=== PATIENT | female | born 1980 | race Caucasian/White ===

== ENCOUNTER 2020-12-13 10:44 | Outpatient (RCR) | payer BC, SELFPAY ==
[2020-12-13 11:08] VITALS: BMI 34.6
[2020-12-13 11:09] VITALS: BMI 34.6
== END 2021-02-28 15:03 | disposition home or self-care (01) ==
LOC: ANHDMC 10:44
PROVIDERS: Referring Provider Obstetrics & Gynecology; Visit Provider Obstetrics & Gynecology
DX: R73.09 Other abnormal glucose (principal); Z71.3 Dietary counseling and surveillance
CPT/HCPCS: 97802

== ENCOUNTER 2021-06-01 10:14 | Outpatient (RCR) | payer BC, SELFPAY ==
[2021-05-22 11:13] VITALS: BP 118/72; PULSE 101
[2021-05-25 12:59] VITALS: BP 115/73; PULSE 97
[2021-05-29 13:06] VITALS: BP 113/71; PULSE 101
--- NOTE | ~2021-06-01 | US_ITS ---
US OB BPP wo non-stress DATE: 05/29/2021 11:33 INDICATION: Advanced maternal age TECHNIQUE: Real-time imaging and Doppler analysis COMPARISON: 05/22/2021 obstetrical ultrasound with biophysical profile FINDINGS: Live cary intrauterine gestation, fetus in vertex presentation, longitudinal lie, with heart rate of 157 bpm. Anterior placenta. BIOPHYSICAL PROFILE reported by arcade technician: breathin out of 2 movement: 2 out of 2 tone: 2 out of 2 Amniotic fluid pocket: 2 out of 2 Total score: 8 out of 8 IMPRESSION: Normal biophysical profile score of 8 out of 8 Reviewed, dictated and finalized at Location A. Reviewed, dictated and finalized at location B.
--- NOTE | ~2021-06-01 | US_ITS ---
EXAMINATION: US OB BPP wo non-stress DATE: 05/22/2021 11:47 INDICATION: Advanced maternal age during third trimester TECHNIQUE: Real-time pelvic ultrasound was performed. The interpreting radiologist was not present fo r the study. COMPARISON: None. FINDINGS: There is a single living fetus in vertex presentation. The placenta is anterior. heart rate is 167 beats per minute (bpm). Biophysical profile performed by the technologist: breathing (30 sec sustained breathing in 30 minutes): 2 out of 2 movement (3 gross body movements in 30 minutes): 2 out of 2 tone (one episode of latixul-ymmhunzpv-vhjiqjz limb movement): 2 out of 2 Amniotic fluid pocket (2 cm): 2 out of 2 Total score: 8 out of 8 IMPRESSION: 1. Single living fetus in vertex presentation with heart rate of 167 bpm. 2. Biophysical profile 8 out of 8. Reviewed, dictated and finalized at location B.
[2021-06-01 10:48] VITALS: BP 123/77; PULSE 98
== END 2021-07-02 09:26 | disposition home or self-care (01) ==
LOC: ANHOBOP 10:14
PROVIDERS: Visit Provider Obstetrics & Gynecology
DX: O09.513 Supervision of elderly primigravida, third trimester (principal); Z3A.32 32 weeks gestation of pregnancy; Z3A.33 33 weeks gestation of pregnancy; Z3A.34 34 weeks gestation of pregnancy
CPT/HCPCS: 59025; 76819

== ENCOUNTER 2021-06-01 23:07 | Observation (INO) | payer BC, SELFPAY ==
[2021-06-01] VITALS (11 sets, daily range): BP systolic 129–130; BP diastolic 72–90; PULSE 83–95; RESP 18; TEMP 36.3; O2SAT 97–99; BMI 33.6
[2021-06-01] MEDS: TERBUTALINE SULFATE 1 MG/ML VIAL 0.25 MG SUB-Q (23:29)
[2021-06-01] MEDS: LACTATED RINGERS 1,000 ML 999 ML (23:31)
--- NOTE | 2021-06-01 23:56 | OBADM ---
This patient, Marisol Romano, admitted to the OB room OB Post 117 for observation. Patient/family oriented to hospital policies and general routines including ID bracelet, bed and alarms, visiting hours, pain management, procedures, bathroom and other care routines, personal items, smoking policy, room service/diet, and visiting hours. Patient/Family are encouraged to report perceived risks to care and to ask questions if they do not understand what they are told or what they should do.
[2021-06-02] VITALS (36 sets, daily range): BP systolic 117–149; BP diastolic 66–76; PULSE 85–112; RESP 20; TEMP 37.1; O2SAT 97–100
[2021-06-02] LABS: Add Urine Microscopic? NO; Appearance Urine Clear (Clear); Bilirubin Urine Negative (Negative); Blood Urine Negative (Negative); Color Urine Straw (Yellow); Glucose Urine UA Negative (Negative); Ketones Urine Negative (Negative); Leukocyte Esterase Ur Negative LEU/UL (Negative); Nitrate Urine Negative (Negative); Protein Urine Negative (Negative); Specific Grav Ur 1.008 (1.001-1.035); Urobilinogen Urine Negative mg/dL (<2.0)
[2021-06-02] MEDS: TERBUTALINE SULFATE 1 MG/ML VIAL 0.25 MG SUB-Q (00:02)
[2021-06-02] MEDS: NIFEdipine 10 MG CAPSULE PO (01:25)
--- NOTE | 2021-06-06 06:45 | P.PNOB_ITS ---
OB - Triage/Final Diagnosis Visit Information Reason for evaluation: threatened labor Comments/Additional reasons for admission: I have assessed the risk for this patient, Marisol Romano, and determined that she would benefit from observation care. Evaluation Laboratory results: Laboratory Tests 06/01/21 23:42 Urine Color Straw Urine Appearance Clear Urine pH 7.0 Ur Specific [place] 1.008 Urine Protein Negative Urine Glucose (UA) Negative Urine Ketones Negative Ur Blood (Man) Negative Urine Nitrate Negative Urine Bilirubin Negative Urine Urobilinogen Negative Leukocyte Esterase Rfl Negative
== END 2021-06-02 02:39 | disposition home or self-care (01) ==
PROVIDERS: Admitting Provider Obstetrics & Gynecology; Visit Provider Obstetrics & Gynecology
DX: O47.03 False labor before 37 completed weeks of gestation, third trimester (principal); Z3A.34 34 weeks gestation of pregnancy
CPT/HCPCS: 81003; 96372; A9270; G0378; G0379; J3105; J7120

== ENCOUNTER 2021-06-04 04:35 | Inpatient (IN) | payer BC, SELFPAY ==
[2021-06-04] VITALS (65 sets, daily range): BP systolic 96–142; BP diastolic 49–93; PULSE 64–106; RESP 16–20; TEMP 36.3–37.2; O2SAT 99–100; BMI 33.5
[2021-06-04 05:16] LABS: Basophils Absolute Auto 0.1 K/mm3 (0.0-0.1); Basophils Percent Auto 0.3 % (0.2-1.2); Eosinophils Absolute Auto 0.2 K/mm3 (0-0.3); Eosinophils Percent Auto 1.1 % (0-4.4); Hematocrit 36.6 % (37.0-47.0); Hemoglobin 12.4 g/dL (12.0-15.0); Immature Granulocyte Absolute 0.14 K/mm3 (0.00-0.031); Immature Granulocyte Percent A 0.7 % (0-0.5); Lymphocytes Absolute Auto 3.42 K/mm3 (0.9-3.2); Lymphocytes Percent Auto 17.7 % (18.3-44.2); Mean Corpuscular HGB Conc 33.9 g/dl (32-36); Mean Corpuscular Hemoglobin 31.2 pg (26-34); Mean Corpuscular Volume 92.2 fl (80-100); Mean Platelet Volume 10.5 fl (7.4-10.4); Monocytes Percent Auto 5.2 % (2.6-8.5); Neutrophils Absolute Auto 14.5 K/mm3 (1.3-6.7); Platelet Count Result 350 k/mm3 (150-375); Red Blood Count 3.97 M/mm3 (4.2-5.4); Red Cell Distribution Width 13.9 % (11.5-14.5); White Blood Count 19.3 K/mm3 (4.5-10.0)
[2021-06-04] MEDS: LACTATED RINGERS 1,000 ML 999 ML IV CONT (05:20)
[2021-06-04] MEDS: MAGNESIUM SULF 6 GM/WATER150ML 6 GM/150 ML BAG IVPB (05:25)
[2021-06-04 05:31] LABS: Alanine Aminotransferase 15 U/L (4-35); Alkaline Phosphatase 107 U/L (38-126); Anion Gap 11 mmol/L (8-16); Aspartate Amino Transferase 19 U/L (14-36); Bilirubin,Total 0.3 mg/dL (0.2-1.3); Blood Urea Nitrogen 6 mg/dL (7-17); Calcium 9.9 mg/dL (8.4-10.2); Carbon Dioxide 18 mmol/L (22-30); Chloride 106 mmol/L (98-107); Estimated Glomerular Filt Rate > 60; Glucose 118 mg/dL (65-110); Potassium 3.9 mmol/L (3.4-5.0); Sodium 135 mmol/L (137-145)
--- NOTE | 2021-06-04 06:45 | PM.IMHP ---
H&P: HPI History of Present Illness Date/Time: 06/04/21 06:45 41-year-old 3 para 2001 female presents at 35 weeks with uterine contractions through the night and so small amount of vaginal bleeding. The was initiated on magnesium sulfate and though contractions slowed she did of spontaneous rupture membranes with clear fluid noted. we will therefore be proceeding without repeat delivery. We have discussed also tubal ligation which she does strongly desired to proceed with after being counseled regarding permanence failure rate increase risk of ectopic and regret. Chief Complaint: contractions Review of Systems Review of Systems: All systems reviewed & are unremarkable except as noted in HPI and below [facility] Social History Social History Spiritual care concerns: No Meds Home Medications and Allergies Allergies Allergy/AdvReac Type Severity Reaction Status Date / Time amoxicillin Allergy Unknown Hives Verified 06/04/21 05:50 Penicillins Allergy Hives Verified 06/01/21 23:51 Vital Signs Vital Signs - 24 hr 06/04/21 05:16 06/04/21 05:25 06/04/21 05:31 Temperature 36.3 C L Pulse Rate 94 104 H 99 Respiratory Rate 16 Blood Pressure 128/89 126/92 H 123/88 06/04/21 05:46 06/04/21 06:01 06/04/21 06:16 Temperature Pulse Rate 106 H 97 98 Respiratory Rate Blood Pressure 126/92 H 120/78 142/89 H 06/04/21 06:31 Temperature Pulse Rate 91 Respiratory Rate Blood Pressure 127/79 Exam Const: General: cooperative and healthy appearing Resp: Effort & Inspection: normal respiratory effort Auscultation: clear to auscultation bilaterally Cardio: Rate: regular rate Rhythm: regular rhythm GI: Auscultation: normal bowel sounds : Bimanual exam- vagina & uterus: enlarged ( Fundal height 36cm heart tones 130-140) H&P: Results Labs Labs: Short CBC 06/04/21 Range/Units 05:10 WBC 19.3 H (4.5-10.0) K/mm3 Hgb 12.4 (12.0-15.0) g/dL Hct 36.6 L (37.0-47.0) % Plt Count 350 (150-375) k/mm3 [facility] 06/04/21 05:10 Sodium 135 L Potassium 3.9 Chloride 106 Carbon Dioxide 18 L BUN 6 L Creatinine 0.50 L Glucose 118 H Calcium 9.9 Liver Function 06/04/21 Range/Units 05:10 Total Bilirubin 0.3 (0.2-1.3) mg/dL AST 19 (14-36) U/L ALT 15 (4-35) U/L Alkaline Phosphatase 107 (38-126) U/L Albumin 4.0 (3.5-5.1) g/dL Assessment and Plan Assessment and plan (1) 35 weeks gestation of : Code(s): Z3A.35 - 35 weeks gestation of Status: Acute (2) labor with term delivery, antepartum: Code(s): O60.20X0 - Term delivery with labor, unspecified trimester, not applicable or unspecified Status: Acute (3) premature rupture of membranes: Code(s): O42.919 - premature rupture of membranes, unspecified as to length of time between rupture and onset of labor, unspecified trimester Status: Acute (4) Encounter for female sterilization procedure: Code(s): Z30.2 - Encounter for sterilization Status: Acute Additional Plan 1. Repeat low transverse section 2. Bilateral tubal ligation
--- NOTE | 2021-06-04 06:48 | WPDHPUPDATE1 ---
History and Physical Update Update Date/Time: 06/04/21 06:48 History and Physical has been reviewed, including an updated exam of the patient. There are NO changes in the patient's condition. Risks, benefits, and alternatives have been discussed and questions answered. Patient agrees to proceed with procedure.
[2021-06-04] MEDS: ceFAZolin 2 GM/D5W 50 ML 2 GM/50 ML BAG IVPB (06:49)
--- NOTE | 2021-06-04 06:51 | WPDANESEPP ---
Anes - Eval Pre Procedure Procedure: Operation Date: 06/04/21 06:30 Proposed Procedures p Section - Adrián Ho MD Date/Time: 06/04/21 06:51 Pre Op Diagnosis: Contractions Patient Data Age: 41 Gender: F Height: Weight: Last Vital Signs Temp 36.3 C L 06/04/21 05:25 Pulse 97 06/04/21 06:46 Resp 16 06/04/21 05:25 BP 137/93 H 06/04/21 06:46 Allergies Allergy/AdvReac Type Severity Reaction Status Date / Time amoxicillin Allergy Unknown Hives Verified 06/04/21 05:50 Penicillins Allergy Hives Verified 06/01/21 23:51 Laboratory Tests 06/04/21 06/04/21 06/04/21 05:10 05:10 06:21 WBC 19.3 K/mm3 H K/mm3 (4.5-10.0) RBC 3.97 M/mm3 L M/mm3 (4.2-5.4) Hgb 12.4 g/dL g/dL (12.0-15.0) Hct 36.6 % L % (37.0-47.0) MCV 92.2 fl fl (80-100) MCH 31.2 pg pg (26-34) MCHC 33.9 g/dl g/dl (32-36) RDW 13.9 % % (11.5-14.5) Plt Count 350 k/mm3 k/mm3 (150-375) MPV 10.5 fl H fl (7.4-10.4) Immature Gran % (Auto) 0.7 % H % (0-0.5) Neut % (Auto) 75.0 % H % (45.5-73.1) Lymph % (Auto) 17.7 % L % (18.3-44.2) [place] % (Auto) 5.2 % % (2.6-8.5) Eos % (Auto) 1.1 % % (0-4.4) Baso % (Auto) 0.3 % % (0.2-1.2) Lymph # (Auto) 3.42 K/mm3 H K/mm3 (0.9-3.2) [place] # (Auto) 1.0 K/mm3 H K/mm3 (0.1-0.6) Eos # (Auto) 0.2 K/mm3 K/mm3 (0-0.3) Baso # (Auto) 0.1 K/mm3 K/mm3 (0.0-0.1) Abs Immat Gran (auto) 0.14 K/mm3 H K/mm3 (0.00-0.031) Absolute Neuts (auto) 14.5 K/mm3 H K/mm3 (1.3-6.7) Absolute Nucleated RBC 0.0 K/mm3 K/mm3 (0.0-0.012) Nucleated RBC % 0.0 % % (0.0-0.2) Sodium 135 mmol/L L mmol/L (137-145) Potassium 3.9 mmol/L mmol/L (3.4-5.0) Chloride 106 mmol/L mmol/L (98-107) Carbon Dioxide 18 mmol/L L mmol/L (22-30) Anion Gap 11 mmol/L mmol/L (8-16) BUN 6 mg/dL L mg/dL (7-17) Creatinine 0.50 mg/dL L mg/dL (0.7-1.0) Estim Creat Clear Calc Not Reportable Estimated GFR > 60 (59 - ) Glucose 118 mg/dL H mg/dL (65-110) Calcium 9.9 mg/dL mg/dL (8.4-10.2) Total Bilirubin 0.3 mg/dL mg/dL (0.2-1.3) AST 19 U/L U/L (14-36) ALT 15 U/L U/L (4-35) Alkaline Phosphatase 107 U/L U/L (38-126) Total Protein 7.0 g/dL g/dL (6.3-8.2) Albumin 4.0 g/dL g/dL (3.5-5.1) RPR Pending Patient hx anesthesia problems: none Family hx anesthesia problems: none Results Review: All pre-operative results and documents have been reviewed as part of the pre-operative evaluation. [facility] Social History Social History Spiritual care concerns: No Exam Day of Procedure 06/04/21 06:51 Patient weight: normal Heart: regular rate and rhythm Lungs: normal air movement Airway: Mallampati scale class 1 Neurological: alert and oriented
--- NOTE | 2021-06-04 07:47 | P.PCNOB_ITS ---
OB - Delivery Note Procedure Procedure: Procedures Operation Date: 06/04/21 06:30 <No data on this case meets the specified criteria> events: Labor < 37 Weeks and Premature Rupture of Membrane Route of delivery: (With bilateral tubal ligation) Specimen: Yes (1. Bilateral fallopian tubes 2. Placenta) Quantitative Blood Loss (ml): 650 Anesthesia type: Spinal Disposition: floor Narrative: Patient and draped in usual manner for procedure. Pfannenstiel incision was made which was carried down to the fascia without difficulty. Fascia was then extended bilaterally the length of the skin incision with adhesions noted the anterior uterine wall to the fascia. These were taken down sharply and bluntly. Once the peritoneum was entered the bladder flap was developed in uterus was scored with clear fluid noted. The uterine incision was extended bilaterally without difficulty and vertex was delivered followed by the rest of baby. Cord clamped and cut passed off to the waiting production troubleshooter. Placenta was removed manually and the uterine cavity was cleared of membranes and clots in the uterine incision was approximated using 0 Monocryl in a running interlocking manner with good Amoxil approximation and hemostasis noted. Bilaterally the tubes were grasped and 0 plain suture was used to perform the tubal ligation. There is a small amount of oozing on the anterior portion of the uterus and this rendered hemostatic with a [id number] 0 Monocryl suture. Uterus was turned the abdomen tubal stumps were noted be hemostatic and intact. And gutters were cleared of serosanguineous fluid and clots. All subfascial tissue was noted hemostatic and the fascia was approximated using 0 Vicryl from left angle to the midline and the right angle to midline in a running manner. Subcutaneous tissue was approximated using 0 plain suture and s taples were used to approximate skin edges. Baby Weeks of gestation at delivery: 35 Infant gender: Female Weight (pounds): 5 Weight (ounces): 12 score one minute: 8 score five minutes: 9
--- NOTE | 2021-06-04 08:17 | LDADM ---
This patient, Marisol Romano, was admitted to Labor/Delivery/Recovery 119 on 06/04/21 at 06:10. Plans for labor, pain management and were discussed with patient. Patient/family oriented to hospital policies and general routines including ID bracelet, bed and alarms, visiting hours, pain management, procedures, bathroom and other care routines, personal items, smoking policy, room service/diet and guest tray routines, infant security routines, and visiting hours. Patient/Family are encouraged to report perceived risks to care and to ask questions if they do not understand what they are told or what they should do. See OBIX for further documentation.
[2021-06-04] MEDS: OXYTOCIN 30 UNITS/NS 500 ML 30 UNITS/500 ML BAG 125 UNITS IV CONT (09:49)
--- NOTE | 2021-06-04 10:26 | PC.NURSE ---
Patient transferred to post room #278 per stretcher from labor and delivery. Support person present. Oriented to unit, room, information board, rooming in, admission packet and security measures. Patient verbalizes understanding.
[2021-06-04 10:28] LABS: Rapid Plasma Reagin Non-Reactive (NonReactive)
[2021-06-04] MEDS: DEXTROSE 5%/0.45% SOD CHL 1,000 ML 125 ML IV CONT (14:40)
[2021-06-04] MEDS: IBUPROFEN 600 MG TABLET PO (19:08)
[2021-06-05 01:00] VITALS: BP 116/62; PULSE 85; RESP 18; TEMP 36.7; O2SAT 98
[2021-06-05 05:15] VITALS: BP 100/61; PULSE 86; RESP 16; TEMP 36.6; O2SAT 99
[2021-06-05] MEDS: IBUPROFEN 600 MG TABLET PO ×3 (05:34→17:32)
[2021-06-05 05:35] LABS: Basophils Percent Auto 0.2 % (0.2-1.2); Eosinophils Absolute Auto 0.2 K/mm3 (0-0.3); Hematocrit 30.2 % (37.0-47.0); Immature Granulocyte Absolute 0.11 K/mm3 (0.00-0.031); Immature Granulocyte Percent A 0.6 % (0-0.5); Lymphocytes Absolute Auto 2.29 K/mm3 (0.9-3.2); Lymphocytes Percent Auto 13.4 % (18.3-44.2); Mean Corpuscular HGB Conc 33.1 g/dl (32-36); Mean Corpuscular Hemoglobin 30.9 pg (26-34); Mean Corpuscular Volume 93.2 fl (80-100); Mean Platelet Volume 10.6 fl (7.4-10.4); Monocytes Absolute Auto 1.2 K/mm3 (0.1-0.6); Monocytes Percent Auto 6.9 % (2.6-8.5); Neutrophils Absolute Auto 13.4 K/mm3 (1.3-6.7); Neutrophils Percent Auto 77.9 % (45.5-73.1); Platelet Count Result 309 k/mm3 (150-375); Red Blood Count 3.24 M/mm3 (4.2-5.4); Red Cell Distribution Width 13.9 % (11.5-14.5); White Blood Count 17.1 K/mm3 (4.5-10.0)
[2021-06-05 07:55] VITALS: BP 109/65; PULSE 79; RESP 16; TEMP 37; O2SAT 99
[2021-06-05] MEDS: MULTIVIT/MIN/PREN/FOL AC/IRON TABLET 1 TAB PO (09:14)
[2021-06-05] MEDS: DOCUSATE SODIUM 100 MG CAPSULE PO ×2 (09:14→17:32)
--- NOTE | 2021-06-05 09:42 | WPDANLDPN2 ---
Anes-Prog Note L&D Date/Time: 06/05/21 09:42 Comfortable throughout: section Neuraxial method: spinal Epidural/Spinal procedure site: clean & non-tender Neuro status: Neuro function grossly intact. Cardiovascular status: normal Respiratory status: normal Airway patency: baseline Mental status: baseline Post-Op hydration status: normal Vital Signs: Last Vital Signs Temp 37.0 C 06/05/21 07:55 Pulse 79 06/05/21 07:55 Resp 16 06/05/21 07:55 BP 109/65 06/05/21 07:55 Pulse Ox 99 06/05/21 07:55 Pain score (VAS): 08/27 I/O: Intake & Output 06/04/21 06/05/21 06/05/21 23:59 07:59 15:59 Intake Total 780 400 Output Total 1275 1500 Balance -495 -1100 Post-procedural complaints: none Patient feedback: Patient satisfied with anesthetic care.
--- NOTE | 2021-06-05 09:42 | WPDANLDNPN2 ---
Anes-Prog Note L&D-Neuraxial Date/Time: 06/05/21 09:42 Neuraxial medications: intrathecal PF morphine Opiod-related complaints: none Patient feedback: Patient satisfied with post-operative pain management.
[2021-06-05 19:20] VITALS: BP 102/67; PULSE 79; RESP 16; TEMP 36.5
[2021-06-06] MEDS: IBUPROFEN 600 MG TABLET PO ×4 (00:05→20:02)
--- NOTE | 2021-06-06 06:51 | P.DS_ITS ---
DS: Admitting Diagnosis Discharge Date 06/06/2021 Admitting Diagnosis DS: Discharge Diagnosis Discharge Diagnosis (1) 35 weeks gestation of : Code(s): Z3A.35 - 35 weeks gestation of Status: Acute OB - DS: Summary OB Procedures : None OB Procedures Intrapartum: and Tubal ligation OB Procedures: : None Peripartum Data Procedures: Procedures Operation Date: 06/04/21 06:30 Actual Procedure Side Surgeon p Section Adrián Ho MD Time Spent with Patient Time attestation: Total time spent providing and/or coordinating discharge services: DS: Data Data Completed and Pending Pending studies at discharge: Pending at discharge 06/04/21 07:33 Surgical [PTH] Routine Discharge Plan Discharge Discharging Clinician: Adrián Ho Patient Disposition: Home, Self-Care Activity: as tolerated Diet: as tolerated Wound Care Instructions: incision open to air Discharge Instructions: office friday for staple Patient Instructions: Antibiotic Form Stand Alone Forms: General Discharge Information Follow-up/Referrals: Adrián Ho MD [Physician] - 3 Weeks Discharge Medications: New hydrocodone-acetaminophen 5-325 mg Tablet 1 tablet PO Q6H Qty: 30 RF: 0 ibuprofen 600 mg Tablet 600 mg PO Q6H PRN (Reason: Cramping) Qty: 30 RF: 0 Date of admission: 06/04/21 06:10 Primary Care Provider: PHYSICIAN,LADLE LINER HELPER Admitting Provider: Adrián Ho Attending physician on admission: Adrián Ho Condition: Stable
[2021-06-06] MEDS: DOCUSATE SODIUM 100 MG CAPSULE PO ×2 (07:48→17:23)
[2021-06-06 08:00] VITALS: BP 121/75; PULSE 84; RESP 18; TEMP 36.4
[2021-06-06] MEDS: TETANUS,DIPHTHERIA,AC PERTUSSIS ADULT (0.5 ML) BOOSTRIX IM (17:24)
[2021-06-06 19:57] VITALS: BP 132/89; PULSE 90; RESP 16; TEMP 36.9
[2021-06-07 08:40] VITALS: BP 122/75; PULSE 81; RESP 16; TEMP 36.7; O2SAT 99
[2021-06-07] MEDS: DOCUSATE SODIUM 100 MG CAPSULE PO (08:54)
[2021-06-07] MEDS: IBUPROFEN 600 MG TABLET PO (08:54)
--- NOTE | 2021-06-07 13:41 | PC.NURSE ---
1135 Discharge papers for mother and baby reviewed and signed. Pt has her staple removal supplies for staple removal at Dr. Ho's office on 06-11-21.
[2021-06-08 09:55] VITALS: BP 132/82; PULSE 97; RESP 20; TEMP 36.9; O2SAT 100
--- NOTE | 2021-06-11 12:26 | PM.OBDSVD ---
DS: Admitting Diagnosis Discharge Date 06/07/21 Admitting Diagnosis OB - DS: Summary OB Procedures : None OB Procedures Intrapartum: OB Procedures: : None Peripartum Data Procedures: Procedures Operation Date: 06/04/21 06:30 Actual Procedure Side Surgeon p Section Adrián Ho MD Time Spent with Patient Time attestation: Total time spent providing and/or coordinating discharge services: DS: Data Data Completed and Pending Completed studies during hospitalization: Pending at discharge 06/04/21 07:33 Surgical [PTH] Routine Discharge Plan Discharge Discharging Clinician: Adrián Ho Patient Disposition: Home, Self-Care Activity: as tolerated Diet: as tolerated Wound Care Instructions: incision open to air Discharge Instructions: office friday for staple Education: Mom and Baby Guide Given to: Mother Follow-Up: Call your delivering provider's office for an appointment to be seen in: Friday, for staple removal Mom and baby [facility] the follow-up appointment. Appointment Date/Time: Tuesday June 08, 2021 at 10:00 am What to expect at your follow-up visit: Blood Pressure Check Physical Assessment Call [phone] if you are unable to keep your appointment time. BREAST CARE: * Wear a snug supportive bra. Bottle Feeding: * May apply ice packs ABDOMINAL INCISION: (if applicable) * Allow incision to air dry * Do NOT use lotions for powders on your incision * When showering, allow soap and water to run over the incision, but do not wash incision EPISIOTOMY/PERINEAL CARE: * Until bleeding stops, use your desi bottle after urinating * Change your pad frequently throughout the day * No tub baths until seen by your physician - You may shower ACTIVITY: * Rest as much as possible. * Do not exercise or lift anything heavier than your baby (such as laundry or other children.) * Avoid stairs or driving as much as possible. * Do not put anything into the vagina. No douching, tampons, or sexual activity until seen by physician. NOTIFY PHYSICIAN IF YOU HAVE ANY QUESTIONS OR IF ANY OF THE FOLLOWING SYMPTOMS OCCUR: * If your incision becomes red, swollen, or more painful than what you have experienced in the hospital. * If your vaginal bleeding becomes foul smelling. * If your vaginal bleeding becomes more heavy than a period or if your bleeding changes from pink to bright red. However, you may pass an occasional walnut-sized clot once or twice for the first week . * If you experience a sharp, shooting pain in you calves. * If you discover a hard, reddened area on your breast or if you experience flu-like symptoms. *Temperature of 100.4 or higher DIET: * Eat regular, well-balanced meals. * Drink plenty of fluids daily. Stand Alone Forms: General Discharge Information Follow-up/Referrals: Adrián Ho MD [Physician] - 3 Weeks Discharge Medications: New hydrocodone-acetaminophen 5-325 mg Tablet 1 tablet PO Q6H Qty: 30 RF: 0 ibuprofen 600 mg Tablet 600 mg PO Q6H PRN (Reason: Cramping) Qty: 30 RF: 0 Date of admission: 06/04/21 06:10 Primary Care Provider: PHYSICIAN,HANDLE ROUNDER OPERATOR Admitting Provider: Adrián Ho Attending physician on admission: Adrián Ho Condition: Stable
== END 2021-06-07 12:02 | disposition home or self-care (01) | DRG 783 ==
LOC: ANHLDR 06:22 → ANHOB2 10:29
PROVIDERS: Admitting Provider Obstetrics & Gynecology; Visit Provider Obstetrics & Gynecology
PROC: 10D00Z1 Extraction of Products of Conception, Low, Open Approach (ICD-10-PCS; CPT 59514; principal; 2021-06-04 06:30)
DX: O42.913 Preterm premature rupture of membranes, unspecified as to length of time between rupture and onset of labor, third trimester (principal); O60.14X0 Preterm labor third trimester with preterm delivery third trimester, not applicable or unspecified; Z37.0 Single live birth; Z3A.34 34 weeks gestation of pregnancy; Z30.2 Encounter for sterilization
CPT/HCPCS: 36415; 80053; 84112; 85025; 86592; 86850; 86900; 86901; 88302; 88307; 90715; A9270; J0131; J0690; J2274; J2370; J2405; J2590; J3475; J7120

== ENCOUNTER 2021-07-19 12:41 | Emergency (ER) | payer BC, SELFPAY ==
[2021-07-19 12:55] VITALS: BP 132/82; PULSE 73; RESP 18; TEMP 36.5; O2SAT 100
--- NOTE | 2021-07-19 13:12 | ED.URI ---
HPI - URI/Sore Throat General Chief Complaint: Upper Respiratory Infection Stated Complaint: sorethroat Source: patient and RN notes reviewed Limitations: no limitations History of Present Illness HPI Narrative: The unvaccinated patient, a non-smoker/rare drinker recently , presents with sore throat. 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 Symptoms are mild; no hoarseness, trismus; no cough, loss of taste/smell, CP, vomiting/diarrhea, S OB, rash Related Data Allergies Allergy/AdvReac Type Severity Reaction Status Date / Time amoxicillin Allergy Unknown Hives Verified 07/19/21 12:59 Penicillins Allergy Hives Verified 07/19/21 12:59 Review of Systems Review of Systems: General/Constitutional: No weight loss,fever Eyes: N0: Redness,discharge Ears/Nose/Throat: No: Epistaxis,ear discharge Respiratory: Denies: Hemoptysis Gastrointestinal: No Vomiting, Bleeding-rectal Skin: No Lumps, eruption Neurologic: No Focal Weakness,Sz Hematologic: Denies: Petechiae/Purpura Psychiatric: No: Suicida ideationl All Other Systems: Reviewed and Negative PMFSH Social History Social History Smoking status: Never smoker Second hand tobacco smoke exposure: No Substance use: current Spiritual care concerns: No Comments At time of signature, agree with nursing past medical, surgical, social and family history. There is no relevant family history pertinent to the presenting complaint Exam Narrative: General Appearance: Well appearing, Well nourished EYE: PERRLA, Conjunctiva clear Ears: Auditory canal normal, TM normal Nose: no rhinorrhea, Mucousal erythema Mouth/Throat: MM moist, Uvula midline, Pharyngeal erythema Neck: Supple, No adenopathy Respiratory: No respiratory distress, Breath sounds equal, Clear to auscultation Cardiovascular: RRR, No JVD Musculoskeletal: Non tender, Normal strength Skin: Warm, Dry Neurological: A&O x3, CN II-XII intact Psychiatric: Normal mood, Normal affect Course Vital Signs Vital signs: Vital Signs Temperature 97.7 F 07/19/21 12:55 Pulse Rate 73 07/19/21 12:55 Respiratory Rate 18 07/19/21 12:55 Blood Pressure 132/82 07/19/21 12:55 Pulse Oximetry 100 07/19/21 12:55 Temperature 97.7 F 07/19/21 12:55 Pulse Rate 73 07/19/21 12:55 Respiratory Rate 18 07/19/21 12:55 Blood Pressure 132/82 07/19/21 12:55 Pulse Oximetry 100 07/19/21 12:55 MDM - URI/Sore Throat Lab Data Labs: Strep Screen Presumptive Negative *(Reference Range: Negative)* Discharge Plan Discharge Clinical Impression: Tonsil pain Patient Disposition: Home, Self-Care Condition: Stable Instructions: Antibiotic Form, Pharyngitis (ED) Prescriptions: New azithromycin 250 mg tablet See Rx Instructions .ROUTE .COMPLEX Qty: 6 RF: 0 lidocaine HCl [Lidocaine Viscous] 2 % solution 5 ml MUCOUS MEM QID PRN (Reason: pain) Qty: 100 RF: 0 Follow-up/Referrals: UNKNOWN,DOCTOR [Primary Care Provider] -
[2021-07-20 17:54] LABS: SARS-CoV-2 RNA PCR Negative
== END 2021-07-19 13:13 | disposition home or self-care (01) ==
PROVIDERS: Emergency Provider Emergency Medicine
DX: J02.9 Acute pharyngitis, unspecified (principal)
CPT/HCPCS: 87081; 87880; 99213; C9803; G0463; U0003; U0005

== ENCOUNTER 2024-11-29 08:52 | Outpatient (CLI) | payer BC, SELFPAY ==
--- NOTE | ~2024-11-29 | MM_ITS ---
EXAMINATION: MM screening júnior BI w geoffrey HISTORY: Screening TECHNIQUE: Craniocaudal and mediolateral oblique 3-D tomosynthesis images were obtained and synthetic 2-D images were generated. CAD analysis was submitted and interpreted. COMPARISON: No prior mammogram is available for comparison at this institution. BREAST PARENCHYMAL COMPOSITION: Not dense: There are scattered areas of fibroglandular density. FINDINGS: There is no evidence of suspicious mass, calcification, or architectural distortion to sugg est malignancy in either breast. There has been no suspicious interval change. IMPRESSION: 1. No mammographic evidence of malignancy. 2. Recommend routine screening mammography in one year. BI-RADS Category 1: Negative Reviewed, dictated and finalized at location B.
== END 2024-11-29 08:53 | disposition home or self-care (01) ==
LOC: MICIMG 08:53
PROVIDERS: PCP Obstetrics & Gynecology; Visit Provider Obstetrics & Gynecology
DX: Z12.31 Encounter for screening mammogram for malignant neoplasm of breast (principal)
CPT/HCPCS: 77063; 77067